=== PATIENT | female | born 1955 | race Caucasian/White ===

== ENCOUNTER → 2017-06-01 | Outpatient (CLI) | payer BC ==
[2017-06-01 14:05] LABS: HEMATOCRIT 38.4 % (37.0-47.0); HEMOGLOBIN 12.5 g/dL (12.5-16.0); MEAN PLATELET VOLUME 9.9 fl (7.4-10.4); RED BLOOD COUNT 4.44 M/mm3 (4.10-5.30); RED CELL DISTRIBUTION WIDTH 13.3 % (11.5-14.5); WHITE BLOOD COUNT 5.2 K/mm3 (4.8-10.8)
[2017-06-01 14:18] LABS: ALBUMIN 4.2 g/dL (3.5-5.0); BUN/CREATININE RATIO 26.1 (6.0-26.0); CALCIUM 9.4 mg/dL (8.4-10.2); POTASSIUM 4.2 mmol/L (3.6-5.0); TOTAL BILIRUBIN 0.1 mg/dL (0.2-1.3); TOTAL PROTEIN 7.4 g/dL (6.3-8.2)
== END ==
LOC: LAB 13:46
PROVIDERS: Family Medicine
DX: Z82.49 Family history of ischemic heart disease and other diseases of the circulatory system (principal); Z88.1 Allergy status to other antibiotic agents; Z88.0 Allergy status to penicillin

== ENCOUNTER → 2017-07-11 | Outpatient (CLI) | payer BC | LOC: CARDREHAB 14:51 → CARDLAB 08-10 08:44 | DX: Z82.49 Family history of ischemic heart disease and other diseases of the circulatory system (principal); Z88.1 Allergy status to other antibiotic agents; Z88.0 Allergy status to penicillin ==

== ENCOUNTER → 2017-08-26 | Outpatient (CLI) | payer BC | LOC: CARDLAB 08-12 13:08 → CARDREHAB 08:59 → CARDLAB 13:55 | DX: R94.39 Abnormal result of other cardiovascular function study (principal) | CPT/HCPCS: A9500 ==

== ENCOUNTER → 2017-09-26 | Outpatient (CLI) | payer BC | LOC: RAD 09:56 | DX: M47.897 Other spondylosis, lumbosacral region (principal) ==

== ENCOUNTER 2017-11-08 14:00 | Outpatient (RCR) | payer BC | END 2017-11-08 14:30 | disposition home or self-care (01) | LOC: PT 14:00 | DX: M54.5 Low back pain (principal) ==

== ENCOUNTER → 2018-05-24 | Outpatient (CLI) | payer BC | LOC: RAD 07:45 | DX: S76.911A Strain of unspecified muscles, fascia and tendons at thigh level, right thigh, initial encounter (principal); R60.9 Edema, unspecified; X58.XXXA Exposure to other specified factors, initial encounter; Y93.9 Activity, unspecified; Y92.9 Unspecified place or not applicable; Y99.9 Unspecified external cause status ==

== ENCOUNTER 2018-06-05 13:02 | Outpatient (RCR) | payer BC | END 2018-06-05 13:30 | LOC: PT 13:02 | DX: S76.911A Strain of unspecified muscles, fascia and tendons at thigh level, right thigh, initial encounter (principal) ==

== ENCOUNTER → 2018-09-13 | Outpatient (CLI) | payer MEDICARE, BC | LOC: MAMMO 14:22 | DX: Z12.31 Encounter for screening mammogram for malignant neoplasm of breast (principal) ==

== ENCOUNTER → 2018-09-26 | Outpatient (CLI) | payer MEDICARE, BC | LOC: RAD 09:56 | DX: M17.12 Unilateral primary osteoarthritis, left knee (principal) ==

== ENCOUNTER → 2020-11-04 | Outpatient (CLI) | payer MEDICARE, BC ==
[2020-11-04 13:04] LABS: BASO # 0.04 (0.02-0.10); EOS # 0.27 (0.04-0.40); EOS % 4.4 % (1.0-5.0); HEMATOCRIT 43.5 % (37.0-47.0); HEMOGLOBIN 14.3 g/dL (12.5-16.0); LYMPH# 1.97 (1.50-4.00); MEAN CELL VOLUME 87 fl (78-100); MEAN CORPUSCULAR HEMOGLOBIN 29 pg (27-31); MEAN CORPUSCULAR HGB CONC 33 g/dL (33-37); MEAN PLATELET VOLUME 9.4 fl (7.4-10.4); MONO # 0.54 (0.20-0.80); NEU # 3.36 (1.40-6.50); PLATELET COUNT 316 K/mm3 (130-400); RED CELL DISTRIBUTION WIDTH 12.8 % (11.5-14.5); WHITE BLOOD COUNT 6.2 K/mm3 (4.8-10.8)
[2020-11-04 13:15] LABS: ALBUMIN 4.4 g/dL (3.4-4.8); POTASSIUM 4.7 mmol/L (3.5-5.1)
[2020-11-04 13:16] LABS: CALCIUM 9.6 mg/dL (8.3-10.5)
[2020-11-04 13:17] LABS: TOTAL PROTEIN 7.8 g/dL (6.2-8.1)
[2020-11-04 13:19] LABS: TOTAL BILIRUBIN 0.3 mg/dL (0.2-1.2)
== END ==
LOC: LAB 12:11
PROVIDERS: Family Medicine
DX: Z00.00 Encounter for general adult medical examination without abnormal findings (principal); E78.5 Hyperlipidemia, unspecified; E55.9 Vitamin D deficiency, unspecified

== ENCOUNTER → 2020-12-16 | Outpatient (CLI) | payer MEDICARE, BC | LOC: RAD 12:51 → MAMMO 13:45 | DX: M85.80 Other specified disorders of bone density and structure, unspecified site (principal) ==

== ENCOUNTER → 2020-12-16 | Outpatient (CLI) | payer MEDICARE, BC | LOC: MAMMO 12:49 | DX: Z12.31 Encounter for screening mammogram for malignant neoplasm of breast (principal) ==

== ENCOUNTER → 2021-11-11 | Day surgery (SDC) | payer MEDICARE, BC | LOC: MSO 11:11 | DX: H26.492 Other secondary cataract, left eye (principal) ==

== ENCOUNTER → 2021-12-04 | Outpatient (CLI) | payer MEDICARE, BC ==
[2021-12-04 12:39] LABS: BASO # 0.06 K/mm3 (0.02-0.10); EOS % 3.2 % (1.0-5.0); HEMATOCRIT 40.7 % (37.0-47.0); HEMOGLOBIN 13.6 g/dL (12.5-16.0); MEAN CELL VOLUME 85 fl (78-100); MEAN CORPUSCULAR HEMOGLOBIN 29 pg (27-31); MEAN CORPUSCULAR HGB CONC 33 g/dL (33-37); MEAN PLATELET VOLUME 9.2 fl (7.4-10.4); MONO # 0.45 K/mm3 (0.20-0.80); NEU # 3.32 K/mm3 (1.40-6.50); PLATELET COUNT 364 K/mm3 (130-400); RED BLOOD COUNT 4.77 M/mm3 (4.10-5.30); RED CELL DISTRIBUTION WIDTH 12.4 % (11.5-14.5); WHITE BLOOD COUNT 6.2 K/mm3 (4.8-10.8)
[2021-12-04 12:47] LABS: ALBUMIN 4.5 g/dL (3.4-4.8); POTASSIUM 4.1 mmol/L (3.5-5.1)
[2021-12-04 12:48] LABS: CALCIUM 9.9 mg/dL (8.3-10.5)
[2021-12-04 12:49] LABS: TOTAL PROTEIN 7.5 g/dL (6.2-8.1)
[2021-12-04 12:51] LABS: TOTAL BILIRUBIN 0.3 mg/dL (0.2-1.2)
== END ==
LOC: LAB 12:20
PROVIDERS: Family Medicine
DX: Z00.00 Encounter for general adult medical examination without abnormal findings (principal); E78.5 Hyperlipidemia, unspecified; E55.9 Vitamin D deficiency, unspecified; J30.9 Allergic rhinitis, unspecified; F41.9 Anxiety disorder, unspecified; F32.9 Major depressive disorder, single episode, unspecified; M19.90 Unspecified osteoarthritis, unspecified site; M85.80 Other specified disorders of bone density and structure, unspecified site; Z82.49 Family history of ischemic heart disease and other diseases of the circulatory system

== ENCOUNTER → 2022-01-28 | Outpatient (CLI) | payer MEDICARE, BC | LOC: LAB 18:09 | DX: N30.01 Acute cystitis with hematuria (principal); R30.0 Dysuria ==